=== PATIENT | female | born 1995 | race Caucasian/White ===

== ENCOUNTER 2018-03-15 03:24 | Outpatient (CLI) | END 2018-03-15 10:49 | disposition home or self-care (01) ==

== ENCOUNTER 2018-03-17 12:18 | Outpatient (CLI) | END 2018-03-17 15:00 | disposition home or self-care (01) ==

== ENCOUNTER 2018-05-13 09:30 | Inpatient (IN) | END 2018-05-15 13:00 | disposition home or self-care (01) | DRG 788 ==

== ENCOUNTER 2018-07-26 16:38 | Emergency (ER) | payer BC ==
[~2018-07-26] VITALS: Ht 160 cm; Wt 65.1 kg
[~2018-07-26 16:38] MED LIST: PNV11TAB PO
[2018-07-26 16:41] VITALS: Ht 160 cm; Wt 65.1 kg
[2018-07-26] MEDS ORDERED: ACETAMINOPHEN 325 MG TAB PO ONE (18:00)
[2018-07-26] MEDS ORDERED: ACET500C5 PO (18:39)
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
[2018-07-26 19:19] VITALS: BP 112/95; PULSE 90; RESP 18
== END 2018-07-26 19:20 | disposition home or self-care (01) ==
LOC: FTE 16:38
DX: M54.2 Cervicalgia (principal)
CPT/HCPCS: 72040; 99283; Z7610